=== PATIENT | male | born 1965 | race Caucasian/White ===

== ENCOUNTER 2017-07-27 11:46 | Day surgery (SDC) | payer BC ==
[2017-07-27] MEDS ORDERED: PROPOFOL 20 ML (12:28)
== END 2017-07-27 14:44 | disposition home or self-care (01) ==
LOC: GIL 11:46
DX: Z12.11 Encounter for screening for malignant neoplasm of colon (principal); K64.8 Other hemorrhoids; I10 Essential (primary) hypertension
CPT/HCPCS: 45378